=== PATIENT | female | born 1950 | race Caucasian/White ===

== ENCOUNTER → 2018-08-30 | Outpatient (CLI) | payer MEDICARE ==
[2017-11-03 11:00] VITALS: BP 164/83
[~2018-08-30] MED LIST: ALLO100T PO; ASPI-482 PO; ATOR20TA58 PO; BUME1TAB PO; CALC0.25 PO; CALC1TAB80 PO; CHOL10003 PO; CYAN500T17 PO; FERR325T14 PO; GABA-585 PO; GLIP10TA13 PO; INSU100C SQ; INSU100I13 SQ; LEVO50TA5 PO; METO5TAB4 PO; OMEP20CA9 PO
--- NOTE | 2018-08-30 16:26 | KCIC ---
CT CHEST WO CONTRAST Indication: Lung nodule Technique: Noncontrast CT imaging was performed of the chest , multiplanar reconstruction images submitted. One or more of the following individualized dose reduction techniques were utilized for this examination: 1. Automated exposure control 2. Adjustment of the mA and/or kV according to patient size 3. Use of iterative reconstruction technique. Contrast: None Comparison: 02/15/2018 outside exam Findings: There is no pleural or pericardial effusion, pneumothorax, infiltrate. There is slightly ectatic ascending thoracic aorta about 3.7 cm, similar. There is no new significant lymphadenopathy of the chest. The major airways are patent. There are again some small pulmonary nodules of the right lower lobe near the right hemidiaphragm best seen on axial images 134 through 139, largest of these about 0.7 cm overall unchanged. Tiny 0.2-0.3 cm left lower lobe nodule axial image 100 is unchanged, also stable tiny 0.2 cm left lower lobe nodule axial image 99. There is no new pulmonary nodularity. There has been cholecystectomy. Exophytic focus of density arising from the superior left kidney about 1.5 cm is similar, likely cyst with density measurements of 17 Hounsfield units. Focus of calcification of the right renal hilum is stable, probably vascular in etiology. There is again hypodense lesion of the left thyroid gland about 1.7 cm difficult to compare as artifact in this region on both exams. IMPRESSION: 1. There are stable small pulmonary nodules, largest of the right lower lobe near the hemidiaphragm about 0.7 cm. As per revised Fleischner guidelines, 18-24 month follow-up is recommended. 2. There is again likely cyst superior left kidney. 3. There is stable mild ectasia of the ascending thoracic aorta about 3.7 cm. 4. There is left thyroid nodule better evaluated by ultrasound. Electronically signed by: Shay Pinzon MD (08/30/2018 4:22 PM) [facility]-KCIC1
== END | disposition home or self-care (01) ==
LOC: KCIC CT 15:03
PROVIDERS: ATTEND Family Medicine
DX: I77.810 Thoracic aortic ectasia (principal); E11.22 Type 2 diabetes mellitus with diabetic chronic kidney disease; I13.2 Hypertensive heart and chronic kidney disease with heart failure and with stage 5 chronic kidney disease, or end stage renal disease; N18.5 Chronic kidney disease, stage 5; I50.32 Chronic diastolic (congestive) heart failure; Z90.49 Acquired absence of other specified parts of digestive tract; Z79.4 Long term (current) use of insulin
CPT/HCPCS: 71250

== ENCOUNTER → 2018-09-25 | Outpatient (CLI) | payer MEDICARE ==
[2017-11-03 11:00] VITALS: BP 164/83
--- NOTE | 2018-09-25 12:23 | KCIC ---
Renal ultrasound dated 09/25/2018. No comparison available. Clinical indication: End-stage renal disease. Possible left renal lesion seen on recent CT. FINDINGS: The right kidney measures 11.1 cm in length. The left kidney measures 11.5 cm in length. There is a circumscribed hypoechoic focus at the upper pole left kidney that measures 1.6 cm in size that is hypoechoic but not anechoic with a few low level internal echoes. There is through transmission. No internal color flow. No hydronephrosis. Urinary bladder is unremarkable. No post void residual. Ureteral jets are visualized. IMPRESSION: 1. No acute sonographic abnormality. No evidence of hydronephrosis. 2. Small hypoechoic focus at the upper pole left kidney likely represents a small complex cyst. Follow-up imaging in one year to ensure stability. Electronically signed by: Maciej Rivera MD (09/25/2018 12:19 PM) [facility]-KCIC2
== END | disposition home or self-care (01) ==
LOC: KCIC US 11:02
DX: E11.22 Type 2 diabetes mellitus with diabetic chronic kidney disease (principal); I13.2 Hypertensive heart and chronic kidney disease with heart failure and with stage 5 chronic kidney disease, or end stage renal disease; I50.9 Heart failure, unspecified; N18.6 End stage renal disease; E11.40 Type 2 diabetes mellitus with diabetic neuropathy, unspecified; K21.9 Gastro-esophageal reflux disease without esophagitis; E03.9 Hypothyroidism, unspecified; Z86.73 Personal history of transient ischemic attack (TIA), and cerebral infarction without residual deficits; Z90.49 Acquired absence of other specified parts of digestive tract; Z90.710 Acquired absence of both cervix and uterus; Z79.4 Long term (current) use of insulin; Z79.899 Other long term (current) drug therapy
CPT/HCPCS: 76770

== ENCOUNTER → 2018-09-25 | Outpatient (CLI) | payer MEDICARE ==
[2017-11-03 11:00] VITALS: BP 164/83
--- NOTE | 2018-09-25 12:20 | KCIC ---
Bone mineral density study dated 09/25/2018. Indication: Postmenopausal screening. Findings: Lower lumbar spine: BMD (g/cm2): Total L1-L4.......... 1.051. . T-Score: Total L1-L4.................... 0.0. Z-Score: Total L1-L4 ................... 2.1. Left Hip: BMD (g/cm2): Total .......... 0.806. . T-Score: Total .................... -1.1. Z-Score: Total ................... 0.3. World Health Organization criteria for BMD interpretation classify patients as Normal (T-score at or above -1.0), Osteopenic (T-score between -1.0 and -2.5), or Osteoporotic (T-score at or below -2.5). Impression: 1. Bone mineral density values of the left femur are within the range of osteopenia. The values of the lumbar spine are within the range of normal. Electronically signed by: Maciej Rivera MD (09/25/2018 12:16 PM) [facility]-KCIC2
== END | disposition home or self-care (01) ==
LOC: KCIC DEXA 11:05
PROVIDERS: ATTEND Family Medicine
DX: M81.0 Age-related osteoporosis without current pathological fracture (principal); N28.89 Other specified disorders of kidney and ureter; K21.9 Gastro-esophageal reflux disease without esophagitis; E11.22 Type 2 diabetes mellitus with diabetic chronic kidney disease; I50.9 Heart failure, unspecified; N18.9 Chronic kidney disease, unspecified; Z78.0 Asymptomatic menopausal state
CPT/HCPCS: 77080

== ENCOUNTER → 2019-12-12 | Outpatient (CLI) | payer MEDICARE ==
[2017-11-03 11:00] VITALS: BP 164/83
[~2019-12-12] MED LIST changes: -BUME1TAB PO; +BUME1TAB3 PO; +OMEP20CA16 PO; -OMEP20CA9 PO
== END | disposition home or self-care (01) ==
LOC: SPEC 11:13
PROVIDERS: ATTEND Podiatrist
DX: E11.621 Type 2 diabetes mellitus with foot ulcer (principal)
CPT/HCPCS: 87071; 87075

== ENCOUNTER → 2020-05-27 | Outpatient (CLI) | payer MEDICARE ==
[2017-11-03 11:00] VITALS: BP 164/83
--- NOTE | 2020-05-27 14:49 | KCIC ---
Examination: MRI of the left foot without contrast HISTORY: History of ulcer second digit COMPARISON: None available TECHNIQUE: Multiplanar, multisequence MR imaging of the left forefoot were performed without contrast. FINDINGS: The alignment of the tarsal bones, tarsometatarsal joints, tarsophalangeal joints grossly appears unremarkable. Multiple subchondral cystic changes identified in the base of the second, third metatarsals and the tarsal bones likely degenerative changes. Plantar subluxation of the distal phalanx of the second toe. There is a small ulcer identified in the soft tissue in the distal second 2 with surrounding increased T2 signal likely soft tissue infection. There is mild increased T2 signal identified in the distal phalanx of the second toe. Mild increased T2 signal identified in the soft tissue of the forefoot likely edema or soft tissue infection. IMPRESSION: 1. Small ulcer identified in the distal tip of the second toe with surrounding increased signal likely soft tissue infection. There is mild increased T2 signal identified in the distal phalanx of the second toe suspicious for early osteomyelitis. 2. Plantar subluxation of the distal phalanx of the second toe. Electronically signed by: Irvin Garay MD (05/27/2020 2:46 PM) [id number]
== END | disposition home or self-care (01) ==
LOC: KCIC MRI 13:31
PROVIDERS: ATTEND Podiatrist
DX: S93.145A Subluxation of metatarsophalangeal joint of left lesser toe(s), initial encounter (principal); E11.621 Type 2 diabetes mellitus with foot ulcer; L97.529 Non-pressure chronic ulcer of other part of left foot with unspecified severity; M25.872 Other specified joint disorders, left ankle and foot; X58.XXXA Exposure to other specified factors, initial encounter; Y93.89 Activity, other specified; Y92.89 Other specified places as the place of occurrence of the external cause; Y99.8 Other external cause status
CPT/HCPCS: 73718

== ENCOUNTER → 2020-06-04 | Outpatient (CLI) | payer MEDICARE ==
[2017-11-03 11:00] VITALS: BP 164/83
[~2020-06-04] MED LIST changes: +AMLO5TAB10 PO; +CALC500T54 PO; +CLIN300C8 PO; +FURO-68 PO; +INSU100V11 IJ; +INSU100V37 SQ; +LIRA0.6P2 SQ; +OMEG10005 PO; +POVI88.72 TP; +SPIR25TA5 PO; +UBID10CA5 PO; +VIT1TABL32 PO; +VITA100075 PO
== END | disposition home or self-care (01) ==
LOC: LAB 13:58
PROVIDERS: ATTEND Podiatrist
DX: Z01.818 Encounter for other preprocedural examination (principal); Z11.59 Encounter for screening for other viral diseases
CPT/HCPCS: C9803; U0003

== ENCOUNTER → 2020-06-05 | Outpatient (CLI) | payer MEDICARE ==
[2017-11-03 11:00] VITALS: BP 164/83
[2020-06-05 15:23] LABS: BASO # 0.1 x10^3/uL (0.0-0.2); BASO % 1 % (0-3); EOS # 0.1 x10^3/uL (0.0-0.7); EOS % 2 % (0-3); HEMATOCRIT 35.6 % (36.0-47.0); HEMOGLOBIN 12.1 g/dL (12.0-15.5); LYMPH # 1.3 x10^3/uL (1.0-4.8); LYMPH % 26 % (24-48); MEAN CORPUSCULAR HEMOGLOBIN 33 pg (25-35); MEAN CORPUSCULAR HGB CONC 34 g/dL (31-37); MEAN CORPUSCULAR VOLUME 97 fL (79-100); MONO # 0.5 x10^3/uL (0.0-1.1); MONO % 10 % (0-9); NEUT % 61 % (31-73); PLATELET COUNT 154 x10^3/uL (140-400); RED BLOOD COUNT 3.66 x10^6/uL (3.50-5.40); RED CELL DISTRIBUTION WIDTH 14.7 % (11.5-14.5); WHITE BLOOD COUNT 4.9 x10^3/uL (4.0-11.0)
[2020-06-05 15:32] LABS: PROTHROMBIN TIME PATIENT 12.9 SEC (11.7-14.0)
[2020-06-05 16:05] LABS: ALBUMIN 3.6 g/dL (3.4-5.0); ALK PHOS 57 U/L (46-116); ALT (SGPT) 24 U/L (14-59); ANION GAP 10 (6-14); AST (SGOT) 24 U/L (15-37); BLOOD UREA NITROGEN 59 mg/dL (7-20); BUN/CREATININE RATIO 17 (6-20); C-REACTIVE PROTEIN < 0.5 mg/L (0-3.3); CALCIUM 8.8 mg/dL (8.5-10.1); CARBON DIOXIDE 28 mmol/L (21-32); CHLORIDE 103 mmol/L (98-107); CREATININE 3.4 mg/dL (0.6-1.0); GFR 13.4; GLUCOSE 113 mg/dL (70-99); POTASSIUM 4.8 mmol/L (3.5-5.1); SODIUM 141 mmol/L (136-145); TOTAL BILIRUBIN 0.4 mg/dL (0.2-1.0); TOTAL PROTEIN 7.3 g/dL (6.4-8.2)
[2020-06-06 02:40] LABS: HEMOGLOBIN A1C 9.4 % (4.8-5.6)
== END | disposition home or self-care (01) ==
LOC: LAB 14:17
PROVIDERS: ATTEND Podiatrist
DX: Z01.818 Encounter for other preprocedural examination (principal); M86.8X7 Other osteomyelitis, ankle and foot; I11.0 Hypertensive heart disease with heart failure; I50.9 Heart failure, unspecified; E11.9 Type 2 diabetes mellitus without complications
CPT/HCPCS: 36415; 80053; 83036; 85025; 85610; 85730; 86140

== ENCOUNTER 2020-06-09 09:13 | Day surgery (SDC) | payer MEDICARE ==
[~2020-06-09] VITALS: Ht 162.6 cm; Wt 90.0 kg
[~2020-06-09 09:13] MED LIST changes: +BUPIVACAINE MPF 0.5% 30 ML VIAL. ONE; +CLINDAMYCIN 900MG PREMIX 50 ML IV PRN; +DEXAMETHASONE SOD PHOS 4 MG/ML VIAL ONE; +HYDROmorphone 2 MG/ML VIAL IV PRN; +IV RINGERS,LACTATED 1000ML 1,000 ML IV SCH; +LIDOCAINE 1% Multi-Dose 20 ML VIAL. ONE; +MORPHINE SULFATE 2 MG/ML VIAL. IV PRN; +POVIDONE-IODINE 10% TOPICAL OINTMENT 28GM TUBE. TP ONE; +PROCHLORPERAZINE 10 MG/2 ML VIAL. IV PRN; +fentaNYL PF VIAL 100 MCG/2 ML VIAL IV PRN; +methylPREDNISolone ACETATE 40 MG/ML VIAL. ONE
--- NOTE | 2020-06-09 10:02 | SSS ---
ADMIT DATE: 06/09/2020 SHORT STAY SUMMARY CHIEF COMPLAINT: Left second toe lesion preop evaluation. HISTORY OF PRESENT ILLNESS: The patient is a pleasant middle-aged female who basically has a diabetic wound on the left second toe. She has been dealing with this for some time. [facility]. She spoke with her nuts and bolts assembler and they have decided to go ahead and do a partial amputation of the distal phalanx on that toe. This is a preoperative evaluation. PAST MEDICAL HISTORY: Diabetes, hypertension, CKD, CHF, cholecystectomy and ventral hernia that has been repaired a couple of times. ALLERGIES: ZOFRAN. FAMILY HISTORY: Noncontributory. 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 She does not drink, smoke or take drugs. MEDICATIONS: Reviewed, please refer to the MRAD. REVIEW OF SYSTEMS: GENERAL: No history of weight change, weakness or fevers. SKIN: No bruising, hair changes or rashes. EYES: No blurred, double or loss of vision. NOSE AND THROAT: No history of nosebleeds, hoarseness or sore throat. HEART: No history of palpitations, chest pain or shortness of breath on exertion. LUNGS: Denies cough, hemoptysis, wheezing or shortness of breath. GASTROINTESTINAL: Chronic hernia. GENITOURINARY: No history of frequency, urgency, hesitancy or nocturia. NEUROLOGIC: Denies history of numbness, tingling, tremor or weakness. PSYCHIATRIC: No history of panic, anxiety or depression. ENDOCRINE: No history of heat or cold intolerance, polyuria or polydipsia. EXTREMITIES: Left second toe lesion. PHYSICAL EXAMINATION: VITALS: Within normal limits and are stable. GENERAL: No apparent distress. Alert and oriented. HEENT: Normal cephalic atraumatic, external auditory canals are patent EYES: Extraocular muscles are intact, pupils are equally round and reactive to light and accommodation MUSCULOSKELETAL: Well developed, well nourished, good range of motion ENDOCRINE: No thyromegaly was palpated LYMPHATICS: No cervical chain or axillary nodes were noted HEMATOPOIETIC: No bruising NECK: Supple, no JVD, no thyromegaly was noted. LUNGS: Clear to auscultation in all lung burt without rhonchi or wheezing. HEART: RRR, S1, S2 present. Peripheral pulses intact, no obvious murmurs were noted. ABDOMEN: She has a ventral hernia, but it is reduced most of the time and while she sits up a little bit. EXTREMITIES: She does have left second toe lesion at the distal aspect. NEUROLOGIC: Normal speech, normal tone. A & O x3, moves all extremities, no obvious focal deficits. PSYCHIATRIC: Normal affect, normal mood. Stable. SKIN: No ulcerations or rashes, good skin turgor, no jaundice. VASCULAR: Good capillary refill, neurovascular bundle appears to be intact. ASSESSMENT AND PLAN: Probable peripheral vascular disease with a second diabetic toe lesion. Clinically, she looks great for surgery. We will go ahead and clear her for surgery. If she has to be admitted after surgery, we can assist with that. Thank you for allowing us to participate in the care of this nice lady. SHERRELL HERNANDEZ DO DR: STEPHANIE/ry JOB#: [id number] / [id number] FRANCHESCA Marcos DPM, STEPHEN MD
[2020-06-09] MEDS ORDERED: IV NORMAL SALINE 1000ML BAG 1,000 ML IV SCH (10:15)
[2020-06-09] MEDS ORDERED: LIDOCAINE 2% PF 5 ML VIAL. ONE (10:57)
[2020-06-09] MEDS ORDERED: PROPOFOL 10 MG/ML (20ML) VIAL. IV ONE (10:57)
[2020-06-09] MEDS ORDERED: fentaNYL PF VIAL 100 MCG/2 ML VIAL ONE (10:58)
[2020-06-09] MEDS ORDERED: DEXAMETHASONE SOD PHOS 4 MG/ML VIAL ONE (10:58)
[2020-06-09] MEDS ORDERED: ePHEDrine PF IN SALINE 50 MG/10 ML SYRINGE. IV ONE (10:58)
[2020-06-09] MEDS ORDERED: SUCCINYLCHOLINE 200 MG/10 ML VIAL. ONE (10:58)
[2020-06-09] MEDS ORDERED: ONDANSETRON PF 4 MG/2 ML VIAL. ONE (10:58)
[2020-06-09] MEDS ORDERED: BACITRACIN 50,000 UNIT in IV NORMAL SALINE 1000ML BAG 1,000 ML IRR ONE (11:00)
[2020-06-09 12:55] VITALS: BP 146/67
--- NOTE | 2020-06-09 12:55 | DISCH ---
DISCHARGE INSTRUCTIONS Condition on Discharge Condition on Discharge: Stable Activity After Discharge Activity Instructions for Disc: Activity as tolerated, Other, see below (Mi nimal weight bearing to the left foot) Lifting Instructions after Dis: No heavy lifting, No pulling or pushing, Do not lift >10 pounds Exercise Instruction after Dis: Progress as tolerated Driving Instructions after Dis: Do not drive Weight Bearing Status after Di: Full weight bearing, Other, see below (Minimal heel weightbearing left foot in a surgical shoe) Diet after Discharge Diet after Discharge: Diabetic No Calorie Level Wound Incision Care Wound/Incision Care: Keep wound/cast CDI, Keep wound elevated, Do not change dressing Checks after Discharge Checks after discharge: Check blood press - daily, Check blood sugar, ac/hs Contacting the DRKari after DC Call your doctor for: Concerns you may have (With any issues ([phone])) Follow-Up Follow up with: Dr. Perez on Monday06/12/20 at 1pm (Call with any issues) FRANCHESCA PEREZ DPM Jun 09, 2020 12:55
--- NOTE | 2020-06-09 13:50 | RAD ---
FOOT LEFT 3V 06/09/2020 12:47 PM INDICATION: Postoperative COMPARISON: None available. TECHNIQUE: 3 views the left foot are provided. FINDINGS/ IMPRESSION: 1. Postoperative changes are identified with osteotomy of the second digit at the level of the head of the proximal phalanx. Associated soft tissue defect is present. No radiopaque foreign density is identified. 2. Moderate arthropathy involving the midfoot at the tarsometatarsal articulations with joint space narrowing and subcortical cystic changes. Electronically signed by: Scarlet Chinchilla MD (06/09/2020 1:47 PM) [id number]
--- NOTE | 2020-06-10 10:46 | OP ---
DATE OF SURGERY: 06/09/2020 SURGEON: Franchesca Perez DPM PREOPERATIVE DIAGNOSES: Ulcer, left second digit with osteomyelitis, left second digit and cellulitis. POSTOPERATIVE DIAGNOSES: Ulcer, left second digit with osteomyelitis, left second digit and cellulitis. PROCEDURE: Partial amputation of the second digit, left foot. ESTIMATED BLOOD LOSS: Minimal, about 5 mL. COMPLICATIONS: None. INDICATIONS: The patient was seen in the clinic for chronic ulceration of the left second digit. The patient had MRI done, which showed possible osteomyelitis of the left second digit. The patient also followed up with [facility]. The patient also had some oral antibiotics. The ulceration was not healing and because of osteomyelitis, it was discussed to have a partial amputation of the second digit with bone biopsy. The [facility] physician agreed with the plan and Dr. Ortiz was aware of the procedure discussed the procedure in detail with the patient. The patient understands the possibility of nonhealing, delayed healing, further infection, further need for surgical intervention with possible further amputation if there is nonhealing. The patient also understands complications, numbness, tingling, burning, bleeding and other complications. The patient was aware of the complications and agrees with the procedure. On the day of surgery, the preop H and P was performed by the hospitalist. The patient understands the risks and complications and would like to go ahead with the procedure. ANESTHESIA: IV sedation with local anesthetic 6 mL of 1:1 mixture of 0.5% Marcaine plain and 1% lidocaine plain. DESCRIPTION OF PROCEDURE: The patient was brought to the operating room and placed on the operating room table in a supine position. Next IV sedation was performed by the Anesthesia service and a local anesthetic block using 6 mL of 1:1 mixture of 0.5% Marcaine plain and 1% lidocaine plain was performed on the 2nd digit. Next, a tourniquet was applied, but the tourniquet was not used during the procedure. The foot was prepped and draped in the usual aseptic manner. Next, attention was drawn to the distal second digit where a vertical fishmouth incision was performed at the PIPJ and the second digit was resected out at the proximal interphalangeal joint, which was sent to pathology lab. Next further clearance fragment was taken off the proximal phalanx and sent to the pathology lab. Wound cultures, aerobic and anaerobic were performed prelavage and sent to pathology lab. The site was then copiously irrigated using sterile saline solution and repeated final cultures were taken and sent to pathology lab. All nonviable necrotic tissue was resected out and the extensor and plantar flexor tendons at the digit were resected out. Next, the surgical site was sutured together using 3-0 nylon in a simple suture technique and surgical site was bandaged with Betadine ointment, Adaptic gauze, Kerlix and Los wrap. The patient tolerated the procedure well. There was minimal bleeding of about 5 mL. The healing is guarded. The surgical site will be monitored closely. If there is not appropriate healing, then vascular physician would be referred for further evaluation. The patient is aware of that. The patient tolerated the procedure and anesthesia well. The patient was taken to the PACU with vital signs stable and in good condition. The patient will be minimal heel weightbearing in a surgical shoe with offloading at the forefoot. The patient to keep the dressing clean, dry and intact. The patient to take clindamycin 300 mg until followup. The patient will follow up in our clinic in 3 days or call sooner if any issues. The patient also aware of her elevated hemoglobin A1c and her kidney function and to follow up with primary care physician as soon as possible for control of the sugars and kidney evaluation. FRANCHESCA PEREZ DPM DR: BECKY/ry JOB#: [id number] / [id number]
--- NOTE | 2020-06-11 18:06 | PATHOLOGY ---
[facility] Accession Number: [id number] . 01 Material submitted: . PART A: toe - AMPUTATED SECOND TOE. Modifiers: second, left PART B: toe - CLEARANCE FRAGMENT. Modifiers: left, second . 01 Clinical history: . Acute osteomyelitis . 02 Diagnosis: A. Left second toe amputation: - Focal ulceration and acute inflammation of skin of distal toe. - Pseudoepithiomatous hyperplasia with marked hyperkeratosis/parakeratosis of skin bordering ulcer. - Fibrosis of soft tissue and distal phalangeal bone underlying ulcer. . B. Segment of bone, articular cartilage, and attached soft tissue, clearance fragment: - Negative for osteomyelitis. . (JPM:evita; 06/11/2020) MBR 06/11/2020 1713 Local . 02 Electronically signed: . Fish Larkin MD, Pathologist NPI- [id number] . 01 Gross description: . A. The specimen is received in formalin, labeled "Karissa Craig, amputated second toe". Received is an amputated digit measuring 3.3 x 2.3 x 2.2 cm in greatest dimensions. The bone margin is smooth and concave in appearance, consistent with disarticulation, and is loosely attached to the remainder of the specimen. The bone and soft tissue margins are inked black. The nail is present, displaying a light ramirez and severely thickened appearance. At the distal aspect of the specimen, displays a poorly circumscribed, irregular in contour, light ramirez crusted lesion measuring 2.0 x 1.5 cm, which is 0.8 cm from the skin margin. A full-thickness longitudinal cross-section is submitted from proximal to distal aspects in cassettes A1 and A2, following decalcification. . B. The specimen is received in formalin, labeled "Karissa Craig, clearance fragment". Received is a segment of bone displaying one blunt transected margin and one smooth disarticulated end measuring 1.0 x 0.8 x 0.7 cm in greatest dimensions. The transected margin is inked black. The specimen is bisected and entirely submitted in cassette B1, following decalcification. (CAA; 06/10/2020) QA/QAC 06/11/2020 1444 Local . 02 Pathologist provided ICD-10: L97.529, L98.9, L85.9, R23.4 . 02 CPT . 064485, 120940, 740620, [id number] Specimen Comment: A courtesy copy of this report has been sent to [phone], [phone] Specimen Comment: [id number] Specimen Comment: Report sent to / DR OTERO Performed at: 01 [facility] [address], [place], [place] [id number] MD Jorge Espino MD Phone: [phone] Performed at: 02 [facility] [address] [place], [place] [id number] MD Fish Larkin MD Phone: [phone]
== END 2020-06-09 13:40 | disposition home or self-care (01) ==
LOC: SURG 09:13
PROVIDERS: ATTEND Podiatrist
DX: M86.8X7 Other osteomyelitis, ankle and foot (principal); L03.116 Cellulitis of left lower limb; I13.0 Hypertensive heart and chronic kidney disease with heart failure and stage 1 through stage 4 chronic kidney disease, or unspecified chronic kidney disease; N18.9 Chronic kidney disease, unspecified; I50.9 Heart failure, unspecified; E11.22 Type 2 diabetes mellitus with diabetic chronic kidney disease; Z98.890 Other specified postprocedural states; Z79.899 Other long term (current) drug therapy
CPT/HCPCS: 28810; 73630; 82962; 87071; 87075; A7015; J0330; J2704; J3010; J3490; J7030; 88305; 88311; J1030; J1100; J2405; A4461

== ENCOUNTER → 2020-11-30 | Outpatient (CLI) | payer MEDICARE ==
[~2020-11-30] MED LIST changes: +AMLO-186 PO; -AMLO5TAB10 PO; -BUPIVACAINE MPF 0.5% 30 ML VIAL. ONE; -CLIN300C8 PO; +CLIN300C9 PO; -CLINDAMYCIN 900MG PREMIX 50 ML IV PRN; -DEXAMETHASONE SOD PHOS 4 MG/ML VIAL ONE; +DIPH25TA24 PO; -HYDROmorphone 2 MG/ML VIAL IV PRN; -IV RINGERS,LACTATED 1000ML 1,000 ML IV SCH; -LIDOCAINE 1% Multi-Dose 20 ML VIAL. ONE; +LINE600T12 PO; -MORPHINE SULFATE 2 MG/ML VIAL. IV PRN; +OMEP20TA8 PO; -POVIDONE-IODINE 10% TOPICAL OINTMENT 28GM TUBE. TP ONE; -PROCHLORPERAZINE 10 MG/2 ML VIAL. IV PRN; -fentaNYL PF VIAL 100 MCG/2 ML VIAL IV PRN; -methylPREDNISolone ACETATE 40 MG/ML VIAL. ONE
[2020-11-30 11:31] LABS: BASO # 0.1 x10^3/uL (0.0-0.2); BASO % 1 % (0-3); EOS # 0.2 x10^3/uL (0.0-0.7); EOS % 4 % (0-3); HEMATOCRIT 35.4 % (36.0-47.0); HEMOGLOBIN 11.9 g/dL (12.0-15.5); LYMPH % 28 % (24-48); MEAN CORPUSCULAR HEMOGLOBIN 33 pg (25-35); MEAN CORPUSCULAR HGB CONC 34 g/dL (31-37); MEAN CORPUSCULAR VOLUME 97 fL (79-100); MONO # 0.5 x10^3/uL (0.0-1.1); MONO % 14 % (0-9); NEUT % 53 % (31-73); PLATELET COUNT 213 x10^3/uL (140-400); RED BLOOD COUNT 3.65 x10^6/uL (3.50-5.40); RED CELL DISTRIBUTION WIDTH 16.9 % (11.5-14.5); WHITE BLOOD COUNT 3.8 x10^3/uL (4.0-11.0)
[2020-11-30 11:42] LABS: ALBUMIN 3.4 g/dL (3.4-5.0); ALBUMIN/GLOBULIN RATIO 0.9 (1.0-1.7); CREATININE 1.9 mg/dL (0.6-1.0); GFR 26.1; POTASSIUM 3.3 mmol/L (3.5-5.1); TOTAL BILIRUBIN 0.6 mg/dL (0.2-1.0); TOTAL PROTEIN 7.4 g/dL (6.4-8.2)
[2020-11-30 11:44] LABS: PROTHROMBIN TIME PATIENT 12.8 SEC (11.7-14.0)
[2020-12-01 02:08] LABS: HEMOGLOBIN A1C 8.5 % (4.8-5.6)
== END ==
LOC: LAB 10:22
PROVIDERS: ATTEND Podiatrist
DX: Z01.812 Encounter for preprocedural laboratory examination (principal); Z88.8 Allergy status to other drugs, medicaments and biological substances; Z20.828 Contact with and (suspected) exposure to other viral communicable diseases
CPT/HCPCS: 36415; 80053; 83036; 85025; 85610; 85730; U0003

== ENCOUNTER 2020-12-03 10:01 | Day surgery (SDC) | payer MEDICARE ==
[~2020-12-03 10:01] MED LIST changes: +BUPIVACAINE MPF 0.5% 30 ML VIAL. ONE; +DEXAMETHASONE SOD PHOS 4 MG/ML VIAL ONE; +HYDROmorphone 2 MG/ML VIAL IV PRN; +IV RINGERS,LACTATED 1000ML 1,000 ML IV SCH; +LIDOCAINE 1% Multi-Dose 20 ML VIAL. ONE; +LIDOCAINE 1% PF 2 ML VIAL. ID PRN; +MORPHINE SULFATE 2 MG/ML VIAL. IV PRN; +ONDANSETRON PF 4 MG/2 ML VIAL. IV PRN; +PROCHLORPERAZINE 10 MG/2 ML VIAL. IV PRN; +fentaNYL PF VIAL 100 MCG/2 ML VIAL IV PRN; +methylPREDNISolone ACETATE 40 MG/ML VIAL. ONE
[2020-12-03] MEDS ORDERED: INSULIN LISPRO 100 UNIT/ML 3ML VIAL for OP,RR ONLY. SQ PRN (10:30)
[2020-12-03] MEDS ORDERED: BUPIVACAINE MPF 0.5% 30 ML VIAL. ONE (11:33)
[2020-12-03] MEDS ORDERED: LIDOCAINE 1% Multi-Dose 20 ML VIAL. ONE (11:33)
[2020-12-03] MEDS ORDERED: POVIDONE-IODINE 10% TOPICAL OINTMENT 28GM TUBE. TP ONE (11:34)
[2020-12-03] MEDS ORDERED: LIDOCAINE 2% PF 5 ML VIAL. ONE (11:51)
[2020-12-03] MEDS ORDERED: PROPOFOL 10 MG/ML (20ML) VIAL. IV ONE (11:51)
--- NOTE | 2020-12-03 12:44 | SSS ---
ADMIT DATE: 12/03/2020 CHIEF COMPLAINT: Left toe wound (the patient is going to surgery with Podiatry. This is a preoperative evaluation). HISTORY OF PRESENT ILLNESS: The patient is a pleasant middle-aged female, who has diabetic foot disease and basically has contractures of her left toes. Because of that, the warmth of her toes tend to rub on the floor and cause abrasions. The plan today is to do a debridement of one of the toes and then do a tendon release of all the other toes. We have been requested for preop evaluation. PAST MEDICAL HISTORY: Diabetes, hypertension, hyperlipidemia, arthritis, previous toe surgeries, probable peripheral vascular disease, hypothyroidism, anemia, gout, GERD, neuropathy. ALLERGIES: ONDANSETRON. FAMILY HISTORY: Diabetes. SOCIAL HISTORY: She does not drink, smoke or take drugs. 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 MEDICATIONS: Reviewed, please refer to the MRAD. She is on 20 medications. REVIEW OF SYSTEMS: GENERAL: No history of weight change, weakness or fevers. SKIN: No bruising, hair changes or rashes. EYES: No blurred, double or loss of vision. NOSE AND THROAT: No history of nosebleeds, hoarseness or sore throat. HEART: No history of palpitations, chest pain or shortness of breath on exertion. LUNGS: Denies cough, hemoptysis, wheezing or shortness of breath. GASTROINTESTINAL: Denies changes in appetite, nausea, vomiting, diarrhea or constipation. GENITOURINARY: No history of frequency, urgency, hesitancy or nocturia. NEUROLOGIC: Denies history of numbness, tingling, tremor or weakness. PSYCHIATRIC: No history of panic, anxiety or depression. ENDOCRINE: No history of heat or cold intolerance, polyuria or polydipsia. EXTREMITIES: Denies muscle weakness, joint pain, pain on walking or stiffness. PHYSICAL EXAMINATION: VITALS: Within normal limits and are stable. GENERAL: No apparent distress. Alert and oriented. HEENT: Normocephalic, atraumatic, external auditory canals are patent. EYES: Extraocular muscles are intact, pupils are equally round and reactive to light and accommodation. MUSCULOSKELETAL: Well developed, well nourished, good range of motion. ENDOCRINE: No thyromegaly was palpated. LYMPHATICS: No cervical chain or axillary nodes were noted. HEMATOPOIETIC: No bruising. NECK: Supple, no JVD, no thyromegaly was noted. LUNGS: Clear to auscultation in all lung burt without rhonchi or wheezing. HEART: RRR, S1, S2 present. Peripheral pulses intact, no obvious murmurs were noted. ABDOMEN: Soft, nontender. Positive bowel sounds no organomegaly, normal bowel sounds. EXTREMITIES: The left foot has toe wounds. Please see the pictures. NEUROLOGIC: Normal speech, normal tone. A & O x 3, moves all extremities, no obvious focal deficits. PSYCHIATRIC: Normal affect, normal mood. Stable. SKIN: No ulcerations or rashes, good skin turgor, no jaundice. VASCULAR: Good capillary refill, neurovascular bundle appears to be intact. LABORATORY DATA: Glucose is 94. ASSESSMENT AND PLAN: Peripheral vascular disease secondary to diabetes and toe wounds and contractures of the toes. The patient seems to be at low risk for intraoperative or postoperative complications. We will go ahead and clear her for surgery. Post-surgery, she is going to need wound care and physical therapy and occupational therapy. If she needs to be admitted, we will be available. For now, resume home meds and p.r.n. pain meds. SHERRELL HERNANDEZ DO DR: STEPHANIE/ry JOB#: [id number] / [id number]
--- NOTE | 2020-12-03 12:48 | DISCH ---
DISCHARGE INSTRUCTIONS Condition on Discharge Condition on Discharge: Stable Activity After Discharge Activity Instructions for Disc: Activity as tolerated, Other, see below (Mi nimal heel weight bearing to the left foot) Lifting Instructions after Dis: No heavy lifting, No pulling or pushing, Do not lift >10 pounds Driving Instructions after Dis: Do not drive Weight Bearing Status after Di: Other, see below (Minimal heel weight bearing to the left foot) Diet after Discharge Diet after Discharge: Diabetic No Calorie Level Wound Incision Care Wound/Incision Care: Keep wound/cast CDI, Keep wound elevated, Do not change dressing Checks after Discharge Checks after discharge: Check blood sugar, ac/hs Contacting the DRKari after DC Call your doctor for: Concerns you may have Follow-Up Follow up with: Dr. Perez [phone] in 5 days or sooner if any issues. FRANCHESCA PEREZ DPM Dec 03, 2020 12:48
--- NOTE | 2020-12-03 12:57 | PDOC4 ---
OPERATIVE NOTE: Pre-op Podiatry Note Date: 12/03/20 Surgeon: Dr. Perez Pre-operative Diagnosis: Chronic ulceration with cellulitis, left 3rd digit. Left 4th digit hammer toe. Post-operative Diagnosis: Same as above Procedure Performed: (1) Partial amputation of the left 3rd digit. (2) Percutaneous flexor tenotomy, left 4th digit. Anesthesia: MAC with local anesthesia (7ml of 1:1 mixture of 1% lidocaine plain and 0.5% marcaine plain) Hemostasis: Non - used (applied a tourniquet to the left ankle but was not inflated. Blood Loss: Minimal - 5ml Pathology: Amputated 3rd digit left foot Patient tolerated the procedure and anesthesia well and was transported to the PACU with vital signs stable and CFT < 3secs to the left foot. FRANCHESCA PEREZ DPM Dec 03, 2020 12:57
[2020-12-03 13:12] VITALS: BP 180/86
--- NOTE | 2020-12-03 14:05 | OP ---
DATE OF SURGERY: 12/03/2020 PREOPERATIVE DIAGNOSES: 1. Chronic ulceration to the left third digit with cellulitis. 2. Hammertoe digit, left fourth digit. POSTOPERATIVE DIAGNOSES: 1. Chronic ulceration to the left third digit with cellulitis. 2. Hammertoe digit, left fourth digit. PROCEDURE PERFORMED: 1. Partial amputation of the third digit, left foot. 2. Percutaneous flexor tenotomy of left fourth digit. ESTIMATED BLOOD LOSS: Minimal at about 5 mL. COMPLICATIONS: None. ANESTHESIA: IV sedation with local anesthetic 7 mL of 1:1 mixture of 0.5% Marcaine plain and 1% lidocaine plain. INDICATIONS: The patient was seen in clinic for chronic ulceration of the left third digit. The patient had MRI done, which did not show any osteomyelitis, but the patient has had previous history of osteomyelitis. The patient had cellulitis of the third digit. The patient was on oral antibiotics linezolid. The ulceration was not healing and the patient decided to go ahead and have a partial amputation of third digit with bone biopsy. The patient's primary care physician was aware of the procedure. The patient understands the possibility of nonhealing, delayed healing, further infection, further need for surgical intervention with possible further amputation. The patient also understands complications of numbness, tingling, burning bleeding and other complications. The patient agrees with the procedure. Also, the patient had a hammertoe on the fourth toe and due to previous ulceration secondary to hammertoe deformities the patient would like to have a hammertoe correction of the fourth digit. The procedure were discussed with the patient about a percutaneous flexor tenotomy and the patient understands the procedure and would like to go ahead with the same. On the day of the surgery, the preop H and P was performed by the hospitalist. The patient understands risks and complications and would like to go ahead with the surgery. Consent was signed and placed in the chart. DESCRIPTION OF PROCEDURE: The patient was brought to the operating room and placed on the operating room table in a supine position. Next IV sedation was performed by Anesthesia service and local anesthetic block was given using 7 mL of 1:1 Mixture of 0.5% Marcaine plain and 1% lidocaine plain at the third and fourth digit of the left foot. Next, a tourniquet was applied, but the tourniquet was not used during the procedure. The foot was prepped and draped in the usual aseptic manner and attention was drawn to the fourth digit lateral aspect where a small percutaneous incision was performed measuring 0.5 cm and a percutaneous flexor tenotomy was performed and the flexible fourth digit hammertoe was corrected. The site was irrigated and the skin was sutured together with 4-0 nylon. Next, the attention was drawn to the distal third digit where a vertical fishmouth incision was performed at the PIPJ of the third digit and the third digit was resected out at the PIPJ, which was sent to the pathology lab and further small fragment of the proximal phalanx head was sent to the pathology lab. Wound cultures, aerobic and anaerobic were performed and sent to pathology lab. The site was then copiously irrigated using sterile saline solution. All nonviable and necrotic tissue was resected out and flexor and extensor tendons were also resected out. Next, the surgical site was sutured together using a 3-0 nylon in a simple suture technique. The surgical site was bandaged with Betadine ointment, Adaptic, Kerlix and Los wrap. The patient tolerated the procedure well. There was minimal bleeding of about 5 mL. The healing is guarded because of not much bleeding even though the patient's pulses are palpable. Surgical site was monitored closely. If there is not appropriate healing, then vascular physician would be referred for further evaluation and the patient is aware of that. The patient tolerated the procedure and anesthesia well. The patient was taken to the PACU with vital signs stable and in good condition. The patient is to remain minimal heel weightbearing in a surgical shoe with offloading to the forefoot. The patient is to keep the dressing clean, dry and intact and will followup in clinic. The patient given prescription for linezolid 600 mg p.o. b.i.d. for 5 days. The patient will follow up in clinic in 3-5 days or call sooner if any issues. The patient to be seen in clinic. FRANCHESCA PEREZ DPM DR: BECKY/ry JOB#: [id number] / [id number]
--- NOTE | 2020-12-03 15:48 | RAD ---
Left foot 3 views INDICATION: Postop COMPARISON: Left foot x-ray 06/09/2020 FINDINGS: There are interval surgical changes of a partial amputation of the third digit at the level of the di stal aspect proximal phalanx. Pre-existing amputation of the second digit proximal phalanx near the PIP joint is also noted. The bones are diffusely demineralized but no new, acute or aggressive appearing bony lesions are seen . Midfoot degenerative changes with osteophytic spurring at the tarsometatarsal joints, and calcaneal s pur are incidentally noted. Soft tissues show gas in the soft tissues surrounding the forefoot, compatible with interval postoper ative change. No radiopaque foreign body. IMPRESSION: Interval third digit surgical amputation at the proximal phalanx and stable appearance to old second digit partial amputation. Electronically signed by: Amy Jimenez MD (12/03/2020 3:45 PM) [id number]
== END 2020-12-03 13:42 | disposition home or self-care (01) ==
LOC: SURG 10:01
PROVIDERS: ATTEND Podiatrist
DX: M20.42 Other hammer toe(s) (acquired), left foot (principal); E11.621 Type 2 diabetes mellitus with foot ulcer; L97.528 Non-pressure chronic ulcer of other part of left foot with other specified severity; L03.032 Cellulitis of left toe; M77.32 Calcaneal spur, left foot; E11.42 Type 2 diabetes mellitus with diabetic polyneuropathy; E78.00 Pure hypercholesterolemia, unspecified; I12.9 Hypertensive chronic kidney disease with stage 1 through stage 4 chronic kidney disease, or unspecified chronic kidney disease; E11.22 Type 2 diabetes mellitus with diabetic chronic kidney disease; N18.30 Chronic kidney disease, stage 3 unspecified; K21.9 Gastro-esophageal reflux disease without esophagitis; E66.9 Obesity, unspecified; E03.9 Hypothyroidism, unspecified; Z87.440 Personal history of urinary (tract) infections; Z90.710 Acquired absence of both cervix and uterus; Z98.890 Other specified postprocedural states; Z79.82 Long term (current) use of aspirin; Z79.4 Long term (current) use of insulin; Z79.899 Other long term (current) drug therapy; Z88.8 Allergy status to other drugs, medicaments and biological substances
CPT/HCPCS: 28010; 28810; 73630; 82962; 87071; 87075; A4461; J2704; J3490; J1030; J1100